=== PATIENT | male | born 1955 | race Caucasian/White ===

== ENCOUNTER 2017-02-15 04:24 | Emergency (ER) | payer BC ==
[2017-02-15 04:59] LABS: BASOPHILS 0.8 % (0.0-2.0); EOSINOPHILS 4.6 % (0.0-6.0); EOSINOPHILS# 0.3 X 10^3uL (0.0-0.4); HEMATOCRIT 46.9 % (42.0-54.0); LYMPHOCYTES# 2.1 X 10^3uL (0.8-3.8); MEAN CELL VOLUME 89.2 fL (80.0-100.0); MEAN CORPUS. HGB CONCENTRATION 34.1 g/dL (32.0-36.0); MEAN CORPUSCULAR HEMOGLOBIN 30.4 pg (29.0-35.0); MEAN PLATELET VOLUME 9.5 fL (7.4-10.4); MONOCYTES# 0.5 X 10^3uL (0.2-1.0); NEUTROPHILS 52.6 % (54.0-75.0); NEUTROPHILS# 3.2 X 10^3uL (2.6-6.7); PLATELET COUNT 185 X 10^3uL (130-440); RED BLOOD COUNT 5.26 X 10^6uL (4.20-6.10); RED CELL DISTRIBUTION WIDTH 13.1 % (11.5-14.5); WHITE BLOOD COUNT 6.1 X 10^3uL (3.9-10.7)
[2017-02-15] MEDS ORDERED: ONDANSETRON HCL 4 MG/2 ML VIAL ONE (05:03)
[2017-02-15 05:10] LABS: BLOOD UREA NITROGEN 17 mg/dL (9-20); EST GLOMERULAR FILTRATION RATE > 60 mL/min; GLUCOSE 94 mg/dL (70-100)
[2017-02-15 05:29] LABS: CALCIUM 9.1 mg/dL (8.4-10.2); CHLORIDE 106 mmol/L (98-107); POTASSIUM 3.9 mmol/L (3.5-5.1); SODIUM 142 mmol/L (137-145)
--- NOTE | 2017-02-15 05:34 | CT REPORT ---
HISTORY: Abdominal pain COMPARISON: None. TECHNIQUE: This examination was performed using automated exposure control, adjustment of mA or kV according to patient size, and/or use of iterative reconstruction technique. Axial contiguous images of the abdome n and pelvis were obtained without oral or IV contrast, coronal reformat images also performed. FINDINGS: The visualized lung parenchyma and cardiac structures are unremarkable. There is a cyst in the inferior pole of the right kidney measuring 3.7 x 3.7 cm. Left kidney is unrem arkable. There is no hydronephrosis. No urinary calculus is identified. Urinary bladder is unremarkab le. There are a few phleboliths in the pelvis. Liver is unremarkable. Gallbladder is unremarkable within limitations of CT evaluation. The spleen is unremarkable. Pancreas is unremarkable. The adrenal glands are unremarkable. The stomach and small bowel are unremarkable. There are a few colonic diverticula but there is no foc us of acute diverticulitis. There is no abnormally dilated colon. The appendix is normal. There is n o free intraperitoneal fluid or gas. There is no mesenteric edema or inflammatory process. There is minimal aortic atherosclerosis without aneurysm. No pathologic adenopathy is identified. There is no destructive osseous lesion. IMPRESSION: 1. No acute intra-abdominal abnormality. No urinary calculus or hydronephrosis. Normal appendix. 2. Minimal colonic diverticulosis. No focus of acute diverticulitis. 3. Minimal aortic atherosclerosis without aneurysm. Final Electronic Signature: This report was electronically signed by Lee Pyle MD on 02/15/2017 5 :31 AM. [email or web address] /
--- NOTE | 2017-02-15 05:41 | RADIOLOGY REPORT ---
HISTORY: Shortness of breath COMPARISON: None. FINDINGS: 1 view of the chest obtained. There is no consolidation. There is no pleural effusion. There is no pneumothorax. The cardiomediastinal silhouette is normal. There is no abnormality of the pulmonary vessels. There is no focal lung parenchymal nodule. There is no bone lesion. IMPRESSION: Normal chest x-ray. Final Electronic Signature: This report was electronically signed by Lee Pyle MD on 02/15/2017 5 :39 AM. [email or web address] /
[2017-02-15 06:04] LABS: TROPONIN I < 0.012 ng/mL (0.00-0.034)
--- NOTE | 2017-02-15 06:31 | ER NURSING DOCUMENTATION ---
Nurse's Notes [facility] Name:Baldemar Jaquez Age:61 yrs Sex:Male :1955 Arrival Date:02/15/2017 Time:04:24 Bed3 Private MD:Physician, No Diagnosis:Chest Wall Pain;Chest Wall Strain Presentation: 02/15 04:33 Presenting complaint: Patient states: left flank pain radiating to left abd. for 1 day, lb c/o nausea. denies urinary sx. Transition of care: Home. Notified ED Physician of Dr. Schwartz notified. 04:33 Acuity: FARHANA 3 lb 04:33 Method Of Arrival: Walk In Triage Assessment: 04:34 General: Appears uncomfortable, Behavior is appropriate for age. Pain: Complains of lb pain in left low back Pain radiates to left lower quadrant Pain currently is 7 out of 10 on a pain scale. Musculoskeletal: Circulation, motion, and sensation intact Capillary refill < 3 seconds. Historical: - Allergies: No known drug Allergies; - Home Meds: 1. Aspirin Oral 2. Crestor oral - PMHx: HIGH CHOLESTEROL; - PSHx: None; - Tetanus: < 10 years. - Ebola Screening: : Patient denies exposure to infectious person. Patient denies travel to an Ebola-affected area in the 21 days before illness onset. . - Immunization history: Flu Vaccine < 1 year. - Social history: Smoking status: Patient states was never smoker of tobacco. Patient/guardian denies using alcohol. Screenin:36 Infectious Disease Risk None. Abuse screen: Denies threats or abuse. Denies injuries lb from another. Nutritional screening: No deficits noted. Assessment: 04:36 See Triage Assessment done by same RN. lb 05:12 Neuro: No deficits noted. lb Vital Signs: 04:35 BP 123 / 93; Pulse 60; Resp 18; Temp 98.6(TE); Pulse Ox 95% on R/A; Weight 72.57 kg; lb Height 5 ft. 7 in. (170.18 cm); Pain 7/10; 05:30 BP 115 / 84; Pulse 67; Resp 14; Pulse Ox 92% on R/A; Pain 0/10; lb 06:29 BP 125 / 86; Pulse 65; Resp 15; Pulse Ox 93% on R/A; Pain 0/10; lb 04:35 Body Mass Index 25.06 (72.57 kg, 170.18 cm) lb [place] Coma Score: 04:55 Eye Response: spontaneous(4). Verbal Response: oriented(5). Motor Response: obeys cd commands(6). Total: 15. ED Course: 04:25 Patient arrived in ED. ma1 04:25 Physician, No is Private Physician. ma1 04:33 Blaire Boles is Primary Nurse. lb 04:33 Triage completed. lb 04:36 Valuables Remains with patient. lb 04:40 Inserted peripheral IV: 20 gauge in left antecubital area and blood collected. lb 04:45 Atul Schwartz MD is Attending Physician. cd 05:11 EKG done. (by ED staff). lb 06:28 EKG attached lb Administered Medications: 04:54 Drug: NS 0.9% 1000 ml; Route: IV; Rate: bolus; Site: left antecubital; lb 06:28 Follow up: IV Status: Completed infusion; IV Intake: 1000ml lb 04:55 Drug: Dilaudid 1 mg; Route: IVP; Site: left antecubital; lb 05:13 Follow up: Response: Pain is decreased lb 04:55 Drug: Zofran 4 mg; Route: IVP; Infused Over: 2 mins; Site: left antecubital; lb 05:13 Follow up: Response: Nausea is decreased lb 06:28 CANCELLED (Physician Discretion): NS 0.9% 1000 ml IV at 250 ml/hr continuous lb Point of Care Testing: Urine Dip: 05:12 pH: 6.0; ; Specific [place]: 1.030; Ketones: Negative; Glucose: Negative; Protein: lb Negative; Leukocytes: Negative; Nitrite: Negative ; Blood: Negative; Bilirubin: Negative ; Urobilinogen: Normal Intake: 06:28 IV: 1000ml; Total: 1000ml. lb 06:29 IV: 1000ml; Total: 2000ml. lb Output: 06:29 Urine: 300ml (Voided); Total: 300ml. lb Outcome: 06:19 Discharge ordered by MD. cd 06:29 Discharged to [place] lb 06:29 Condition: stable 06:29 Discharge Assessment: Patient awake, alert and oriented x 3. No cognitive and/or functional deficits noted. Patient verbalized understanding of disposition instructions. 06:29 Instructed on discharge instructions, follow up and referral plans. no drinking with medication, no driving heavy equipment. 06:29 IV D/Mikel 06:30 Patient left the ED. lb 02/16 13:22 Discharge F/U Call: Spoke with: patient. Overall Care on a scale of 1-10 with 10 tg being the best care, you rate our care as: Other comments: Pt feeling good, appreciative of care in ED Signatures: Luis Matos RN RN tg Atul Schwartz MD MD cd Bollock, Lynda lb Addison, Melissa ma1
--- NOTE | 2017-02-15 06:31 | ER PHYSICIAN DOCUMENTATION ---
Physician Documentation [facility] Name:Baldemar Jaquez Age:61 yrs Sex:Male :1955 Arrival Date:02/15/2017 Time:04:24 Bed3 Private MD:Physician, No ED Atul Sparks Disposition: 02/15/17 06:19 Discharged to Home/Self Care. Impression: Chest Wall Pain, Chest Wall Strain. - Condition is Good. - Discharge Instructions: CHEST WALL PAIN, Costochondritis, CHEST WALL STRAIN. - Prescriptions for Hydrocodone- Acetaminophen 5-325 mg Oral Tablet - take 1 tablet by ORAL route every 6 hours As needed; 20 tablet. - Medical Reconciliation form form. - Follow up: Private Physician; When: 7 - 10 days; Reason: Recheck today's complaints, Continuance of care. - Problem is new. - Symptoms are resolved. - Notes: Ice pack to your chest wall for 2 days. Take Ibuprofen 600mg by mouth every 6 hours for 4 days. Take Hydrocodone1 tab by mouth every 6 hours with food as needed for pain. Limit any workouts until your chest wall is feeling better. HPI: 02/15 04:52 This 61 yrs old Male presents to ER via Walk In with complaints of Back Pain, cd Possible Kidney Stone. 04:52 The patient presents with pain that is acute, with no known mechanism of injury. The cd symptoms are located in the left mid back. Onset: The symptoms/episode began/occurred acutely, 2 day(s) ago, and became worse last night, 6 hour(s) ago. The pain radiates to the left upper quadrant and left lower quadrant. Associated signs and symptoms: Pertinent positives: abdominal pain, nausea, Pertinent negatives: chest pain, constipation, dysuria, hematuria, urinary retention, vomiting. Severity of symptoms: At their worst the symptoms were severe, a " 7" out of "10", in the emergency department the symptoms are unchanged. The patient has not experienced similar symptoms in the past. Historical: - Allergies: No known drug Allergies; - Home Meds: 1. Aspirin Oral 2. Crestor oral - PMHx: HIGH CHOLESTEROL; - PSHx: None; - Tetanus: < 10 years. - Ebola Screening: : Patient denies exposure to infectious person. Patient denies travel to an Ebola-affected area in the 21 days before illness onset. . - Immunization history: Flu Vaccine < 1 year. - Social history: Smoking status: Patient states was never smoker of tobacco. Patient/guardian denies using alcohol. ROS: 04:54 ENT: Negative for injury, pain, epistaxis and discharge. cd Neck: Negative for injury, pain, stiffness and swelling. Cardiovascular: Negative for chest pain, palpitations, edema and pleuritic pain. 04:54 Respiratory: Negative for shortness of breath, dyspnea on exertion, cough, sputum cd production, wheezing, hemoptysis and pleuritic chest pain. MS/Extremity: Negative for injury, deformity, edema, calf tenderness, pain or coldness. Skin: Negative for injury, rash, itching and discoloration. 04:54 Neuro: Negative for headache, weakness, numbness, tingling, and seizure. 04:54 Constitutional: Positive for poor PO intake, Negative for chills, fever. 04:54 Abdomen/GI: Positive for abdominal pain, nausea, of the left upper quadrant and left lower quadrant, Negative for abdominal distension. 04:54 Back: Positive for pain at rest, Negative for pain with movement, radiated pain. 04:54 All other systems are negative. Exam: ENT: Nares patent. No nasal discharge, no septal abnormalities noted. Tympanic membranes are normal and external auditory canals are clear. Oropharynx with no redness, swelling, or masses, exudates, or evidence of obstruction, uvula midline. Mucous membranes dry Neck: Trachea midline, no thyromegaly or masses palpated, and no cervical lymphadenopathy. Supple, full range of motion without nuchal rigidity, or vertebral point tenderness. No Meningismus. Chest/axilla: Normal chest wall appearance and motion. Nontender with no deformity. No lesions are appreciated. Cardiovascular: Regular rate and rhythm with a normal S1 and S2. No gallops, murmurs, or rubs. Normal PMI, no JVD. No pulse deficits. Respiratory: Lungs have equal breath sounds bilaterally, clear to auscultation and percussion. No rales, rhonchi or wheezes noted. No increased work of breathing, no retractions or nasal flaring. Skin: Warm, dry with normal turgor. Normal color with no rashes, no lesions, and no evidence of cellulitis. MS/ Extremity: Pulses equal, no cyanosis. Neurovascular intact. Full, normal range of motion. 04:55 Neuro: Awake and alert, GCS 15, oriented to person, place, time, and situation. cd Cranial nerves II-XII grossly intact. Motor strength 5/5 in all extremities. Sensory grossly intact. Cerebellar exam normal. Normal gait. 04:55 Constitutional: The patient appears alert, awake, non-diaphoretic, non-toxic, well developed, well nourished, anxious, in obvious distress, moderately distressed. 04:55 Abdomen/GI: Inspection: abdomen appears normal, Bowel sounds: normal, active, Palpation: moderate abdominal tenderness, in the left lower quadrant, rebound tenderness, is not appreciated, voluntary guarding, is not appreciated, involuntary guarding, is not appreciated, no appreciated organomegaly, Rectal exam: the exam is deferred, Indicators: McBurney's point is not tender, Belcher's sign is negative. 04:55 Back: pain, that is severe, of the left mid back and left lower quadrant, ROM is normal, normal spinal alignment noted, CVA tenderness, that is moderate, is noted on the left. 04:55 : Rectal exam: is not applicable. 04:55 Neuro: Motor: is normal, Sensation: is normal, Gait: is steady, Deep tendon reflexes are normal. Vital Signs: 04:35 BP 123 / 93; Pulse 60; Resp 18; Temp 98.6(TE); Pulse Ox 95% on R/A; Weight 72.57 kg; lb Height 5 ft. 7 in. (170.18 cm); Pain 7/10; 05:30 BP 115 / 84; Pulse 67; Resp 14; Pulse Ox 92% on R/A; Pain 0/10; lb 06:29 BP 125 / 86; Pulse 65; Resp 15; Pulse Ox 93% on R/A; Pain 0/10; lb 04:35 Body Mass Index 25.06 (72.57 kg, 170.18 cm) lb [place] Coma Score: 04:55 Eye Response: spontaneous(4). Verbal Response: oriented(5). Motor Response: obeys cd commands(6). Total: 15. MDM: 02/14 06:00 Counseling: I had a detailed discussion with the patient and/or guardian regarding: the cd historical points, exam findings, and any diagnostic results supporting the discharge/admit diagnosis, lab results, radiology results, the need for outpatient follow up, for a recheck, with the patient's primary care provider, to return to the emergency department if symptoms worsen or persist or if there are any questions or concerns that arise at home. Response to treatment: the patient's symptoms have resolved after treatment, the patient's pain is gone, the patient's condition has returned to base line, patient is well hydrated. and as a result, I will discharge patient. 02/15 04:40 Data interpreted: Pulse oximetry: on room air is 95 %. Interpretation: normal. cd 04:45 Patient medically screened. cd 04:57 Differential diagnosis: Abdominal Aortic Aneurysm Basilar Pneumonia Pyelonephritis cd ruptured disc, Ureterolithiasis. Data reviewed: vital signs, nurses notes, old medical records, and as a result, I will continue to observe the patient, administer IV fluids, NS bolus, NS maintenence, prescribe pain medication, Dilaudid. 05:11 ECG:. cd 06:28 EKG attached lb 02/15 05:06 Order name: CBC AUTO DIF, MDIF/RMOR IF IND; Complete Time: 10:08 EDMS 02/15 05:20 Interpretation: Normal. cd 02/15 05:31 Order name: BASIC METABOLIC PANEL; Complete Time: 10:08 EDMS 02/15 05:34 Interpretation: Normal. 02/15 06:05 Order name: TROPONIN I; Complete Time: 10:08 EDMS 24 10:07 Interpretation: Normal. cd 02/15 05:36 Order name: CAT SCAN; [place] [id number]; Complete Time: 05:47 EDMS 02/15 05:46 Interpretation: Normal: See Radiologist Reading. 02/15 05:43 Order name: CHEST; SINGLE VIEW [id number]; Complete Time: 05:47 EDMS 02/15 05:47 Interpretation: Normal: See Radiologist Reading. 02/15 04:46 Order name: I & O; Complete Time: 04:54 cd 02/15 04:46 Order name: NPO; Complete Time: 04:54 cd 02/15 04:46 Order name: Pulse Ox Continuous; Complete Time: 04:54 02/15 05:11 Order name: EKG - 12 Lead; Complete Time: 06:28 cd EC:05 Rate is 64 beats/min. Rhythm is regular. QRS [place] is Normal. OR interval is normal. QRS cd interval is normal. QT interval is normal. No Q waves. T waves are Normal. No ST changes noted. Clinical impression: Normal ECG and No evidence of ischemia. Interpreted by me. Dispensed Medications: 04:54 Drug: NS 0.9% 1000 ml; Route: IV; Rate: bolus; Site: left antecubital; lb 06:28 Follow up: IV Status: Completed infusion; IV Intake: 1000ml lb 04:55 Drug: Dilaudid 1 mg; Route: IVP; Site: left antecubital; lb 05:13 Follow up: Response: Pain is decreased lb 04:55 Drug: Zofran 4 mg; Route: IVP; Infused Over: 2 mins; Site: left antecubital; lb 05:13 Follow up: Response: Nausea is decreased lb 06:28 CANCELLED (Physician Discretion): NS 0.9% 1000 ml IV at 250 ml/hr continuous lb Point of Care Testing: Urine Dip: 05:12 pH: 6.0; ; Specific [place]: 1.030; Ketones: Negative; Glucose: Negative; Protein: lb Negative; Leukocytes: Negative; Nitrite: Negative ; Blood: Negative; Bilirubin: Negative ; Urobilinogen: Normal Signatures: Atul Schwartz MD MD cd Bollock, Lynda lb
== END 2017-02-15 06:31 | disposition home or self-care (01) ==
LOC: ER 04:24
DX: R07.81 Pleurodynia (principal); E86.0 Dehydration; R11.0 Nausea; R10.12 Left upper quadrant pain; R10.32 Left lower quadrant pain; M54.89 Other dorsalgia; E78.00 Pure hypercholesterolemia, unspecified; Z79.899 Other long term (current) drug therapy
CPT/HCPCS: 71010; 74176; 80048; 84484; 85025; 93005; 96361; 96374; 96375; 99284; J1170; J2405